=== PATIENT | male | born 1980 | race Caucasian/White ===

== ENCOUNTER 2022-10-23 13:30 | Outpatient (CLI) | payer BC ==
[2022-10-25 03:09] LABS: HBsAG SCREEN Negative (Negative); HEPATITIS B SURFACE AB QUANT 3.5 mIU/mL (Immunity>9.9)
[2022-10-25 06:10] LABS: HIV SCREEN 4TH GENERATION Non Reactive (Non Reactive); RPR Non Reactive (Non Reactive)
[2022-10-25 10:09] LABS: HSV 1 IGG TYPE SPEC <0.91 index (0.00-0.90)
== END 2022-10-23 13:45 | disposition home or self-care (01) ==
LOC: LAB.N 13:30
PROVIDERS: ATTEND Emergency Medicine
DX: Z72.51 High risk heterosexual behavior (principal)
CPT/HCPCS: 36415; 86317; 86592; 86695; 86696; 87340; 87389

== ENCOUNTER 2022-11-13 08:00 | Outpatient (CLI) | payer BC ==
--- NOTE | 2022-11-13 16:49 | XRAY Report ---
PROCEDURE: Shoulder 3 View LT INDICATIONS: LEFT SHOULDER PAIN TECHNIQUE: 4 views of the shoulder were acquired. COMPARISON: None. FINDINGS: Bones: No acute fractures or dislocations. No suspicious bony lesions. Visualized ribs appear inta ct. Mild to moderate acromioclavicular joint osteoarthrosis. Minimal spurring at the inferior gleno id. Soft tissues: No suspicious soft tissue calcifications. The visualized lungs are within normal limi ts. IMPRESSION: Mild to moderate acromioclavicular joint osteoarthrosis. No acute osseous abnormality. If symptoms pe rsist or there is continued clinical concern, further evaluation with MRI may be helpful. Reviewed by: Cristi Mcginnis MD on 11/13/2022 4:47 PM PDT Approved by: Cristi Mcginnis MD on 11/13/2022 4:47 PM PDT Station ID: [id number]
== END 2022-11-13 23:59 | disposition home or self-care (01) ==
LOC: DI.WOS 08:00
PROVIDERS: ATTEND Physician Assistant Surgical
DX: M19.012 Primary osteoarthritis, left shoulder (principal)